=== PATIENT | female | born 1940 | race Caucasian/White ===

== ENCOUNTER 2019-02-13 16:43 | Inpatient (IN) | payer OTHER ==
[~2019-02-13] VITALS: Ht 162.6 cm; Wt 87.5 kg
[2019-02-13 18:00] VITALS: BP 186/118
[2019-02-13 19:11] VITALS: BP 180/113
[2019-02-14] VITALS: BP 162/102
[2019-02-14 02:08] VITALS: BP 132/93
[2019-02-14 04:12] VITALS: BP 151/94
[2019-02-14 05:22] LABS: HEMATOCRIT 41.8 % (37.0-47.0); HEMOGLOBIN 13.8 gm/dL (12.0-15.0); MCH 30.3 pg (26.0-34.0); MCHC 33.1 g/dL (28.0-37.0); MCV 91.6 fL (80.0-100.0); RBC 4.56 mil/uL (4.20-5.00); RDW 14.4 % (10.5-14.5); WBC 7.5 thou/uL (4.0-11.0)
--- NOTE | 2019-02-14 05:27 | NUR ---
ASSUMED CARE AROUND 1900. AXOX4. SHISHMAREF IRA. SEEN BY MICHAEL MORA [employer] HISTORY PROFESSOR FOR . KEPT NPO P MN. IVF AND K REPLACED. DENIES PAIN OR DISCOMFORT AT THIS TIME. NO S/S ACUTE DISTRESS NOTED OR REPORTED AT THIS TIME. WILL CONT TO MONITOR FOR ANY CHANGES IN CONDITION.
[2019-02-14 05:48] LABS: CALCIUM 8.3 mg/dL (8.5-10.1); CREATININE 1.2 mg/dL (0.6-1.0); POTASSIUM 3.3 mmol/L (3.5-5.1)
[2019-02-14 08:00] VITALS: BP 167/98
[2019-02-14 10:16] LABS: ALBUMIN 2.9 g/dL (3.4-5.0); DIRECT BILIRUBIN 0.4 mg/dL (<0.1-0.3); TOTAL BILIRUBIN 1.2 mg/dL (<0.1-1.0); TOTAL PROTEIN 6.8 g/dL (6.4-8.2)
[2019-02-14 15:00] VITALS: BP 149/94
--- NOTE | 2019-02-14 20:02 | NUR ---
1PM-7PM Received awake on bed. On nothing per orem- pt informed and aware. Due medications given as prescribed. A+Ox4. On room air. With NS at 75cc/hr infusing well at L AC. Pt had MRCP today as reported by previous shift, a/w surgical input; received phone call from Dr Da Silva at 1330 , pt can have clear liquid then NPO p midnight- pt informed, had broth and jello. Dr Da Silva called back at 1430 and asked if pt had eaten anything- Dr Da Silva informed that pt had broth and jello as per previous conversation with him; to place pt on NPO then have consent signed for lap esdras with cholangiogram. Pt not comfortable to sign consent as procedure not explained to her- Dr Da Silva informed and just to send down consent to OR so he can explain procedure to pt. Report given to OR staff- informed them re: last oral intake- to ask Anesthesiologist and will bring down pt at 1500- pt informed. Vital signs stable. Assisted in ADLs. No complaints of pain. Pt back to nails from surgery at 1830. With 4 lap sites w/dermabond, 3 C/D/I, 1 lap site(near xiphoid process) covered with gauze, as per OR staff it stuck to pt's gown, no bleeding noted. Pt still grogy from procedure, rousable. Asked if she wants anything to eat as pt may resume diet post procedure, pt said she wants to sleep first and will ask staff if ever. Vital signs stable. scene shifter nurse informed that pt had an episode of BP elevation at PACU- meds given there, to monitor pt's BP in the nails. To continue monitoring. Previous pt's IV resumed upon coming back to the nails.
--- NOTE | 2019-02-15 02:28 | NUR ---
ASSUMED CARE OF PT AT 1900HRS. PT AOX4 AND LETS NEEDS BE KNOWN. PT HAS A STEADY GAIT BUT FALL PRECAUTION IN PLACE DUE TO RECENT OP. PT DOES NOT REPORT ANY PAIN OR NAUSEA. LAP SITES X4 ARE NOT BLEEDING. ASSESSMENTS CHARTED. VSS AND NO S/S OF ACUTE DISTRESS. WILL CONTINUE TO MONITOR.
[2019-02-15 03:06] VITALS: BP 160/91
[2019-02-15 05:42] LABS: ALBUMIN 2.9 g/dL (3.4-5.0); CALCIUM 8.7 mg/dL (8.5-10.1); CREATININE 1.3 mg/dL (0.6-1.0); POTASSIUM 3.8 mmol/L (3.5-5.1); TOTAL BILIRUBIN 0.7 mg/dL (<0.1-1.0); TOTAL PROTEIN 7.1 g/dL (6.4-8.2)
[2019-02-15 08:00] VITALS: BP 161/86
[2019-02-15] MEDS ORDERED: TRAMADOL 50 MG50 MG PO (11:13)
[2019-02-15] MEDS ORDERED: NORVASC10 MG PO (11:15)
[2019-02-15] MEDS ORDERED: CEFUROXIME250 MG PO (11:18)
[2019-02-15 15:32] VITALS: BP 135/83
--- NOTE | 2019-02-15 17:54 | NUR ---
PATIENT IS A/O X 4. THE PATIENT HAS DENIED PAIN FOR THE SHIFT AND HAS RESTED FOR THE DAY. VITAL SIGNS STABLE. WILL CONTINUE TO MONITOR.
[2019-02-15 19:07] VITALS: BP 150/87
--- NOTE | 2019-02-16 05:32 | NUR ---
ASSUMED CARE OF PT AT 1900HRS. PT AOX4 AND LETS NEEDS BE KNOWN. FALL PRECAUTION IN PLACE. PT DENIES ANY PAIN OR NAUSEA. NO BM THIS SHIFT. ABX TREATMENT CONTINUED. NO S/S OF ACUTE DISTRESS. WILL CONTINUE TO MONITOR.
[2019-02-16 06:05] LABS: HAV IgM AB (ANTI-HAV IgM) Negative (Negative); HEPATITIS B SURFACE AG Negative (Negative); HEPATITIS C VIRUS AB <0.1 (0.0-0.9)
[2019-02-16 07:44] VITALS: BP 150/68
[2019-02-16 11:37] VITALS: BP 150/68
--- NOTE | 2019-02-16 12:42 | NUR ---
Assumed pt care this am, vs have been stable. Lap sites dry and intact. No signs of distress have been noted, no pain or complaints have been verbalized by the pt. DC orders given, instructions and prescriptions given to the pt. IV removed, belonging double checked thst she had everything. Dentures still missing, verge report filed yesterday. POC followed. Pt was picked up by a relative.
--- NOTE | 2019-02-17 14:02 | HC ---
[facility] [place] [address] CONSULTATION Name: MATTHEW IVY Room #: 454-P [facility] IN M.R.#: [id number] Admission: 02/13/19 Attend Phys: Jenna Garcia Discharge: 02/16/19 Date of : 38 Report #: [id number] THIS REPORT FOR: //name// CC: FAM unknown Jenna Garcia DATE OF SERVICE: 02/13/2019 ATTENDING PHYSICIAN: Dr. Garcia. CONSULTING PHYSICIAN: Dr. Jaden Da Silva. REASON FOR CONSULTATION: Cholecystitis, possible choledocholithiasis. ASSESSMENT: 1. Cholecystitis. 2. Transaminitis. 3. Hyperbilirubinemia. 4. Hypertension. 5. Elevated creatinine. RECOMMENDATIONS: 1. Thank you for the consultation. We will follow along. 2. The patient has labs concerning for biliary obstruction. Therefore, we will proceed with ordering an MRI today. 3. Pending results of the MRI, she may need ERCP. 4. In the meantime, recommend bowel rest. IV antibiotics. Analgesia and antiemetics. Resuscitation. HISTORY OF PRESENT ILLNESS: The patient is a very pleasant 79-year-old female who was transferred to [facility] with a 2-day history of right upper quadrant abdominal pain. She reports that this is the first episode of pain she has had like this. The patient reports that she started vomiting on Saturday. She reports that the pain is worsened by eating broth. She reports that the pain is a mixture of sharp and dull. She denies fevers/chills/night sweats. Pain is in the right upper quadrant and epigastrium. PAST MEDICAL HISTORY: Hypertension. PAST SURGICAL HISTORY: 1. Tonsillectomy. 2. Left shoulder. 3. Hip replacement. SOCIAL HISTORY: Denies the use of alcohol, tobacco or recreational drugs. She reports that she lives with her sister, but mainly lives with her ____. She is [facility] [address] [place] [address] CONSULTATION Name: MATTHEW IVY Room #: 454-P [facility]#: [id number] Admission: 02/13/19 Attend Phys: Jenna Garcia Discharge: 02/16/19 Date of : 38 Report #: [id number] active ____. FAMILY HISTORY: Denies coagulopathy or cancers. REVIEW OF SYSTEMS: CONSTITUTIONAL: No fever. No chills. HEENT: Denies blurring of vision, double vision, headaches, hearing loss, sinus drainage or sore throat. Denies blurring of vision, double vision, headaches, hearing loss, sinus drainage or sore throat. CARDIOVASCULAR: Denies chest pain, palpitations, orthopnea or paroxysmal nocturnal dyspnea. RESPIRATORY: Denies cough, wheezing, hemoptysis, or shortness of air. GASTROINTESTINAL: See above and below. GENITOURINARY: Denies dysuria or hematuria or kidney stones. No urinary frequency, urgency or incontinence. Denies dysuria or hematuria or kidney stones. No urinary frequency, urgency or incontinence. MUSCULOSKELETAL: No joint pain. No muscle pain. NEUROLOGICAL: Denies tremor, stroke or seizure. Denies tremor, stroke or seizure. HEMATOLOGIC / LYMPHATICS: Denies easy bruising, easy bleeding or enlarged lymph nodes. SKIN: No rash or ulceration. ENDOCRINE: No heat or cold intolerance PSYCHIATRIC: Denies depression, anxiety, or schizophrenia. PHYSICAL EXAMINATION: VITAL SIGNS: Temperature 98.5, pulse 66, respiratory rate 16, blood pressure 180/113, pulse ox 95%. GENERAL: No apparent distress, alert and oriented x3. HEENT: PERRLA, EOMI, MMM, NCAT NECK: Supple. No LAD CARDIOVASCULAR: Regular rhythm and rate. Hemodynamically stable. Normal capillary refill. Regular rhythm and rate. Hemodynamically stable. Normal capillary refill. PULMONARY: Nonlabored. Clear to auscultation bilaterally ABDOMEN: Soft, tender to palpation in the right upper quadrant with voluntary guarding, no rebound, no rigidity. No hernias are detected. No previous scars appreciated. EXTREMITIES: Calves soft, nontender, no edema. SKIN: No rashes or bruises. PSYCHIATRIC: Normal mood and affect Normal mood and affect NEUROLOGICAL: Grossly intact. CN II-XII grossly intact. MUSCULOSKELETAL: 5/5 strength in upper extremities and lower extremities bilaterally LYMPHATICS: No cervical, inguinal, or supraclavicular lymphadenopathy. [address] [address] CONSULTATION Name: MATTHEW IVY Room #: 454-P [facility] IN M.R.#: [id number] Admission: 02/13/19 Attend Phys: Jenna Garcia Discharge: 02/16/19 Date of : 38 Report #: [id number] LABORATORY DATA: White blood count 6.9, hemoglobin 15.3, hematocrit 46.6, platelets 259. Creatinine 1.4, sodium 146, potassium 3.2, AST 367, ALT 637, alkaline phosphatase 251, total bilirubin 2.2. RADIOLOGY: Ultrasound, impression: 1. Cholelithiasis with circumferential gallbladder mural thickening suggesting possible cholecystitis. 2. Multiple small right renal cysts. <ELECTRONICALLY SIGNED> By: Jaden Da Silva MD 02/17/19 1402 0713 1608 Jaden Da Silva MD /nt
--- NOTE | 2019-02-18 17:06 | PATH ---
[facility] [address] [place] [address] PATHOLOGY RPT PROCEDURE Name: MATTHEW IVY Room #: 454-P [facility] IN M.R.#: [id number] Admission: 02/13/19 Date of : 38 Discharge: 02/16/19 Report #: [id number] Path Case #: [id number] [facility] Accession Number: [id number] . 01 Material submitted: . gallbladder - GALLBLADDER . 01 Clinical history: . Acute cholecystitis . 02 Diagnosis: Gallbladder, cholecystectomy: - Mild chronic cholecystitis. - Cholelithiasis. . (IUV:mml; 02/18/2019) [facility]/02/18/2019 . 02 Electronically signed: . Madison Madrigal MD, Pathologist NPI- [id number] . 01 Gross description: . Received in formalin labeled "Matthew Ivy gallbladder," is an intact, turgid gallbladder measuring 10.2 x 3.8 x 3.6 cm in greatest dimensions. The serosal surface is smooth to wrinkled and dark green in appearance, displaying scant attached yellow adipose tissue. Opening the specimen reveals a dark green mucosa diffusely stippled with faint yellow highlights and measuring 0.1 cm in thickness, with a gallbladder wall thickness of 0.1 cm. No polyps or nodules are identified grossly. Calculi are present within the specimen that are mulberry and klein in appearance, ranging from 0.1 to 0.7 cm in maximum dimension. Pediatric Dental Assistant sections of the infundibulum, body and fundus are submitted in cassette A1. (DAC; 02/17/2019) XDC/XDC . 02 Pathologist provided ICD-10: K80.10 . 02 CPT . 038424 Specimen Comment: A courtesy copy of this report has been sent to Specimen Comment: [phone], . Specimen Comment: Report sent to / DR DAVIS Performed at: 01 [place] [address] PATHOLOGY RPT PROCEDURE Name: MATTHEW IVY Room #: 454-P [facility] IN ..#: [id number] Admission: 02/13/19 Date of : 38 Discharge: 02/16/19 Report #: [id number] Path Case #: [id number] [facility] [address], [place], [place] [id number] MD Tano Jaime MD Phone: [phone] Performed at: [address], [place], [place] [id number] MD Madison Madrigal MD Phone: [phone]
== END 2019-02-16 12:25 | disposition home or self-care (01) | DRG 418 ==
LOC: 4W 16:43
PROVIDERS: Internal Medicine Gastroenterology; Nurse Practitioner Family; ADMIT Hospitalist
PROC: BF131ZZ Fluoroscopy of Gallbladder and Bile Ducts using Low Osmolar Contrast (ICD-10-PCS; principal; 2019-02-14)
PROC: 0FT44ZZ Resection of Gallbladder, Percutaneous Endoscopic Approach (ICD-10-PCS; principal; 2019-02-14)
DX: K80.62 Calculus of gallbladder and bile duct with acute cholecystitis without obstruction (principal); N39.0 Urinary tract infection, site not specified; I10 Essential (primary) hypertension; E80.6 Other disorders of bilirubin metabolism; N28.1 Cyst of kidney, acquired; E66.9 Obesity, unspecified; R74.0 Nonspecific elevation of levels of transaminase and lactic acid dehydrogenase [LDH]; Z96.642 Presence of left artificial hip joint; E03.9 Hypothyroidism, unspecified; Z98.42 Cataract extraction status, left eye; Z98.41 Cataract extraction status, right eye; Z87.442 Personal history of urinary calculi; Z91.19 Patient's noncompliance with other medical treatment and regimen; Z68.33 Body mass index [BMI] 33.0-33.9, adult
CPT/HCPCS: 10047; 50010; 50101; 50249; 50411; 50555; 50558; 51474; 51489; 52265; 52266; 53307; 53310; 53312; 54022; 54118; 56462; 56525; 56526; 56674; 62110; 62900; 70005